=== PATIENT | male | born 1960 | race Two or more races ===

== ENCOUNTER 2018-11-05 16:11 | Day surgery (SDC) | payer BC, OTHER ==
[~2018-11-05] VITALS: Ht 177.8 cm; Wt 84.5 kg
[2018-11-05 15:47] VITALS: Ht 177.8 cm; Wt 84.5 kg
[2018-11-05 15:48] VITALS: BP 122/70; PULSE 74; RESP 18
[~2018-11-05 16:11] MED LIST: CEFAZOLIN 2 GM/50 ML (PMX) 50 ML IVPB SCH; SOD CHLORIDE 0.9% 1,000 ML IV SCH
--- NOTE | 2018-11-05 17:17 | PREAC ---
Date/Time of Note Date/Time of Note DATE: 11/05/18 TIME: 17:16 Anesthesia Eval and Record Evaluation Time Pre-Procedure Interview DATE: 11/05/18 TIME: 17:16 Age 58 Sex male NPO: 8 hrs Preoperative diagnosis anal skin tag Planned procedure excision anal skin tag Past Medical History Past Medical History: None Surgery & Anesthesia Issues No known issue Meds Anticoagulation: No Beta Jhon within 24 hr: No Reason Beta Jhon not given: Pt. not on B-Jhon No Active Prescriptions or Reported Meds Meds reviewed: Yes Allergies Coded Allergies: No Known Allergy (Unverified , 11/05/18) Allergies Reviewed: Yes Labs/Studies Labs Reviewed: Reviewed by anesthesiologist Result Diagram: 11/05/18 1630 11/05/18 1630 Laboratory Tests 11/05/18 16:30 test: N/A Studies: ECG (sr), CXR (nl) Pre-procedure Exam Last vitals Vital Signs Date Temp Pulse Resp B/P (MAP) Pulse Ox O2 O2 Flow FiO2 Time Delivery Rate 11/05/18 97.5 74 18 122/70 98 Room Air 15:48 (87) Airway: Adequate mouth opening Mallampati: Mallampati I Teeth: Normal Lung: Normal Heart: Normal ASA Physical Status ASA physical status: 1 Emergency: None Planned Anesthetic General/MAC: MAC, TIVA Planned Pain Management Parenteral pain med Pre-operative Attestations Prior to commencing anesthesia and surgery, the patient was re-evaluated, there was verification of: *The patient's identity *The results of appropriate recent lab work and preoperative vital signs *The above evaluation not changing prior to induction *Anesthetic plan, risk benefits, alternative and complications discussed with patient/family; questions answered; patient/family understands, accepts and wishes to proceed. LUKE MIRANDA MD Nov 05, 2018 17:17
[2018-11-05] MEDS ORDERED: LIDOCAINE 1% (MPF) 30 ML INJ ONE (18:17)
[2018-11-05] MEDS ORDERED: BUPIVACAINE 0.5%/EPI (SDV) 30 ML INJ ONE (18:17)
--- NOTE | 2018-11-05 18:47 | OPR ---
Date/Time of Note Date/Time of Note DATE: 11/05/18 TIME: 18:47 Operative Report Procedure Date: Nov 05, 2018 Preoperative Diagnosis Multiple anal skin tags Postoperative Diagnosis Same Operation/Procedure Performed Excision of multiple anal skin tags Surgeon Van Sanchez MD FACS Anesthesia Type: moderate sedation Estimated Blood Loss: minimal Transfusion none Specimen Anal skin tags Grafts/Implants none Complications none Pt Condition Post Procedure: stable Disposition: PACU Indications This patient presented to clinic complaining of multiple skin tags that were causing pain discomfort as well as hygiene issues. In order to resolve the problem he requested surgical excision. After all risks and benefits were explained and informed consent was obtained for surgery. VAN SANCHEZ Nov 05, 2018 18:47
[2018-11-05] MEDS ORDERED: MIDAZOLAM 1 MG/ML 2 ML INJ ONE (18:51)
[2018-11-05] MEDS ORDERED: PROPOFOL 20 ML ONE (18:51)
[2018-11-05] MEDS ORDERED: KETOROLAC 30 MG INJ ONE (18:51)
[2018-11-05] MEDS ORDERED: FENTAnyl 50 MCG/ML VIAL ONE (18:51)
[2018-11-05] MEDS ORDERED: CEFAZOLIN 1 GM INJ ONE (19:00)
[2018-11-05 19:33] VITALS: BP 109/62; PULSE 55; RESP 20
[2018-11-05 19:38] VITALS: BP 99/54; PULSE 64; RESP 18
[2018-11-05 19:43] VITALS: BP 107/71; PULSE 62; RESP 17
[2018-11-05 19:45] VITALS: BP 110/70; PULSE 66; RESP 24
[2018-11-05 19:52] VITALS: BP 120/69; PULSE 69; RESP 22
--- NOTE | 2018-11-08 07:31 | PAC ---
Date/Time of Note Date/Time of Note DATE: 11/19 TIME: 19:30 Post-Anesthesia Notes Post-Anesthesia Note Last documented vital signs Vital Signs Date Temp Pulse Resp B/P (MAP) Pulse Ox O2 O2 Flow FiO2 Time Delivery Rate 11/05/18 69 22 120/69 98 Room Air 19:52 (86) 11/05/18 97.9 19:40 Activity: WNL Respiratory function: WNL Cardiovascular function: WNL Mental status: Baseline Pain reasonably controlled: Yes Hydration appropriate: Yes Nausea/Vomiting absent: No LUKE MIRANDA MD Nov 08, 2018 07:31
== END 2018-11-05 20:05 | disposition home or self-care (01) ==
LOC: SDS 16:11
PROVIDERS: ATTEND Surgery Surgical Critical Care
DX: K64.4 Residual hemorrhoidal skin tags (principal)
CPT/HCPCS: 46230; 71045; 80053; 85025; 85610; 85730; J0690; J1885; J2250; J3010; Z7512; Z7610